=== PATIENT | female | born 1950 | race Caucasian/White ===

== ENCOUNTER → 2016-08-14 | Outpatient (CLI) | payer OTHER, BC ==
[~2016-08-14] MED LIST: ACET-1311 PO; ATOR10TA88 PO; BIOTCAP2 PO; CETI10TA84 PO; ESCI10TA17 PO; HYDC25 PO; LISI1TAB3 PO; MULT-506 PO; PRLSR20 PO; SALI0.657 NAE; SIME180C6 PO; TAMO20TA47 PO; TRIA1SPR4 NAE; TRIA3AER NAE; [UNRECOGNIZED DRUG - CODE] PO
[2016-08-14 15:55] LABS: BASO % 0.4 %; BASO ABS # 0.03 K/uL (0-0.2); COMPLETE YES; EOS % 1.4 %; HEMATOCRIT 40.5 % (37-47); IG% 0.1 %; LYMPH % 23.6 %; MEAN CELL VOLUME 95.3 fL (80-100); MEAN CORPUSCULAR HGB CONC 33.6 g/dl (32-36); MEAN PLATELET VOLUME 10.6 fL (7.4-10.4); MONO % 7.6 %; NEUT % 66.9 %; PLATELET COUNT 220 K/uL (130-400); RED BLOOD COUNT 4.25 M/uL (4.2-5.4); WHITE BLOOD COUNT 7.63 K/uL (4.8-10.8)
== END | disposition home or self-care (01) ==
LOC: C.LAB1850 14:31
PROVIDERS: ATTEND Obstetrics & Gynecology
DX: Z01.818 Encounter for other preprocedural examination (principal)

== ENCOUNTER → 2016-08-18 | Day surgery (SDC) | payer OTHER, BC ==
--- NOTE | 2016-07-01 16:23 | PAT Medication Instructions ---
Service Date Jul 01, 2016. Current Home Medication List Acetaminophen (Tylenol), 650 MG PO Q8 PRN for Pain Atorvastatin (Lipitor), 10 MG PO HS Biotin (Biotin 5000), 1 CAP PO QAM Cetirizine (Zyrtec), 10 MG PO DAILYQAM Escitalopram (Lexapro), 10 MG PO QAM Glucosamine-Chondroitin (Glucosamine/Chondroitin), 1 CAP PO QAM Hydrochlorothiazide (Hctz *), 25 MG PO QAM Lisinopril (Zestril), 30 MG PO HS Multivitamin (Multivitamin), 1 TAB PO QAM Omeprazole (Prilosec), 20 MG PO QAM Saline (Orangevale), 1 SPRY KIRSTEN QAM Simethicone (Phazyme), 180 MG PO BID Tamoxifen (Nolvadex), 20 MG PO QAM Triamcinolone Acet (Nasacort-Aq Nasal Inh), 2 SPRAYS KIRSTEN QPM Triamcinolone Acetonide (Nasal (Nasacort Allergy 24Hr), 1 SPRAY KIRSTEN HS Medication Instructions For Your Scheduled Surgery - Hold the following medications 10 days prior to surgery: Glucosamine-Chondroitin (Glucosamine/Chondroitin), 1 CAP PO QAM Biotin (Biotin 5000), 1 CAP PO QAM - Hold the following medications evening prior to surgery: Lisinopril (Zestril), 30 MG PO HS - Hold the following medications the morning of surgery: Multivitamin (Multivitamin), 1 TAB PO QAM Hydrochlorothiazide (Hctz *), 25 MG PO QAM Cetirizine (Zyrtec), 10 MG PO DAILYQAM Simethicone (Phazyme), 180 MG PO BID Tamoxifen (Nolvadex), 20 MG PO QAM (can take later in day after surgery) - Take the following medications the morning of surgery with a sip of water: Saline (Orangevale), 1 SPRY KIRSTEN QAM Omeprazole (Prilosec), 20 MG PO QAM Escitalopram (Lexapro), 10 MG PO QAM Acetaminophen (Tylenol), 650 MG PO Q8 PRN for Pain (if needed) - Take the following medications as scheduled the night before surgery: Triamcinolone Acet (Nasacort-Aq Nasal Inh), 2 SPRAYS KIRSTEN QPM Atorvastatin (Lipitor), 10 MG PO HS Acetaminophen (Tylenol), 650 MG PO Q8 PRN for Pain Simethicone (Phazyme), 180 MG PO BID If you have any questions please call us at [phone] or [phone] ( [place]) or [phone]
[2016-07-01 16:53] LABS: BASO % 0.4 %; BASO ABS # 0.03 K/uL (0-0.2); COMPLETE YES; EOS % 1.5 %; HEMATOCRIT 37.8 % (37-47); IG% 0.1 %; LYMPH % 28.3 %; LYMPH ABS # 2.12 K/uL (1.2-3.4); MEAN CELL VOLUME 94.5 fL (80-100); MEAN CORPUSCULAR HEMOGLOBIN 32.5 pg (25-34); MEAN CORPUSCULAR HGB CONC 34.4 g/dl (32-36); MEAN PLATELET VOLUME 9.8 fL (7.4-10.4); NEUT % 62.7 %; PLATELET COUNT 194 K/uL (130-400); WHITE BLOOD COUNT 7.48 K/uL (4.8-10.8)
[2016-07-01 17:14] LABS: BLOOD UREA NITROGEN 17 mg/dl (7-18); BUN/CREATININE RATIO 22.3 (10-20); CALCIUM 9.1 mg/dl (8.5-10.1); CARBON DIOXIDE 30 mmol/L (21-32); CHLORIDE 102 mmol/L (98-107); CREATININE 0.76 mg/dl (0.60-1.20); GLUCOSE 93 mg/dl (70-99); POTASSIUM 3.7 mmol/L (3.5-5.1); SODIUM 140 mmol/L (136-145)
[2016-08-08 09:30] VITALS: Ht 165.1 cm; Wt 75.4 kg
[~2016-08-18] VITALS: Ht 165.1 cm; Wt 75.4 kg
[~2016-08-18] MED LIST changes: +DEXAMETHASONE SOD INJ 4 MG/ML VIAL ONE; +FENTANYL CITRATE INJ 50 MCG/1 ML 2 ML VIAL IV PRN; +FENTANYL CITRATE INJ 50 MCG/1 ML 2 ML VIAL ONE; +KETOROLAC TROMETHAMINE 30 MG/ML VIAL IV. PRN; +KETOROLAC TROMETHAMINE 30 MG/ML VIAL ONE; +LACTATED RINGER'S 1000ML 1,000 ML IV PRN; +LACTATED RINGER'S 1000ML 1,000 ML IV SCH; +LIDOCAINE HCL 2% 2 ML VIAL (20MG/ML) ONE; +MIDAZOLAM HCL 1 MG/ML 2ML VIAL ONE; +ONDANSETRON INJ 2 MG/ML 2 ML VIAL IV PRN; +ONDANSETRON INJ 2 MG/ML 2 ML VIAL ONE; +OXYCODONE/ACETAMINOPHEN 5-325 TAB PO PRN; +PROMETHAZINE HCL INJ 25 MG in SODIUM CHLORIDE 0.9% 50ML 50 ML IV PRN; +PROPOFOL IV EMULSION 10 MG/ML 20 ML VIAL IV ONE; +SODIUM CHLORIDE 0.9% 1000ML 1,000 ML IV SCH
--- NOTE | 2016-08-18 09:03 | History & Physical Bridge - SC ---
H&P Re-Evaluation Bridge Note: I have examined the patient, reviewed the History & Physical and in the interval since the performance of the History & Physical I have noted the following changes of clinical significance: No changes noted
--- NOTE | 2016-08-18 09:50 | Discharge Instructions-SurgCtr ---
Discharge Instructions Visit Reason for Visit: Post Menopausal Bleeding Discharge Goals Goal(s): Diagnostic testing Medications Stopped Medications Name(s): TOLD TO STOP BIOTIN AND BIOFLEX 10 DAYS AGO AND LISINOPRIL 2 DAYS AGO Activity Recommendations Activity Limitations: per Instructions/Follow-up section Anesthesia . Post Anesthesia Instructions: If you have had General Anesthesia or IV Sedation: * Do not drive today. * Resume driving when surgeon permits. * Do not make important decisions or sign legal documents today. * Call surgeon for: 1. Temperature elevations greater than 101 degrees F. 2. Uncontrollable pain. 3. Excessive bleeding. 4. Persistent nausea and vomiting. 5. Medication intolerance (nausea, vomiting or rash). * For nausea and vomiting use only clear liquids such as: tea, soda, bouillon until nausea subsides, then gradually increase diet as tolerated. * If you have any concerns or questions, call your surgeon's office. If physician is unavailable and it is an emergency, call 911 or go to the nearest emergency room. . Instructions / Follow-Up Instructions / Follow-Up ACTIVITY RECOMMENDATIONS: * Avoid tampons, douching, hot tubs, pools, and intercourse until bleeding has stopped. * May shower as usual. * No strenuous activity for 24-48 hours. After 24-48 hours, you may do anything you feel like doing (driving and sports are okay). SPECIAL CARE INSTRUCTIONS: Special Diet: * Mild nausea may occur in the immediate post-operative period. * Take clear liquids such as tea, cola or bouillon until all nausea has subsided; you may then resume your normal diet. Special Care: * Light bleeding and vaginal spotting can last from a few days to 3-4 weeks. Call your doctor if bleeding becomes heavier than the heaviest part of your period. * Check your temperature twice a day for one week. If it goes above 100.4 degrees Fahrenheit (38.0 Celsius), notify your doctor. * Call your doctor's office for an appointment for 6 weeks after your surgery. FOLLOW-UP VISIT: Call your doctor's office for an appointment for 6 weeks after your surgery. Diet Recommendations Home Diet: resume previous diet Procedures Procedures Performed: Dilatation And Curettage, Hysteroscopy,Polypectomy Pending Studies Studies pending at discharge: yes (Pathology results ) Medical Emergencies . Who to Call and When: Medical Emergencies: If at any time you feel your situation is an emergency, please call 911 immediately. . Non-Emergent Contact Non-Emergency issues call your: Primary Care Provider, [employer] . . "Provider Documentation" section prepared by Kay Parnell.
--- NOTE | 2016-08-18 09:51 | [facility] Post Operative Brief Note ---
Immediate Operative Summary Operative Date Aug 18, 2016. Pre-Operative Diagnosis Post Menopausal Bleeding, Tamoxifen use, thickened endometrium Post-Operative Diagnosis same + endometrial polyp Procedure(s) Performed Dilatation And Curettage, Hysteroscopy,Polypectomy Surgeon Dr. Celia Parnell Wiener Packer Surgeon(s) Barb Bernard,[facility] Estimated Blood Loss <5cc Findings Uterus sounded to 8cm. Large cavity-filling endometrial polyp. Bilateral ostia noted. Specimens A. Endocervical Curettings B. Endometrial Curettings C. Endometrial Polyp Drains none Anesthesia general Complication(s) None Disposition Recovery Room / PACU
--- NOTE | 2016-08-18 09:55 | Medical Student: [facility] ---
Immediate Operative Summary Operative Date Aug 18, 2016. Pre-Operative Diagnosis Post menopausal bleeding, endometrial thickness, tamoxifen use Post-Operative Diagnosis Post menopausal bleeding, endometrial thickness, tamoxifen use, polyp Procedure(s) Performed Dilation and Curretage, hysteroscopy, polypectomy Surgeon Dr. Parnell Manager Risk Surgeon(s) Alva Bernard MSIII Estimated Blood Loss <5 cc Findings Uterus sounded to 8 cm. Presence of large polyp within uterus. Ostia visualized bilaterally. Specimens Endocervical curettings Polyp Endometrial currettings Drains None Anesthesia General Complication(s) None Disposition Recovery Room / PACU
--- NOTE | 2016-08-18 10:25 | OPERATIVE REPORT ---
DATE OF OPERATION: 08/18/2016 PREOPERATIVE DIAGNOSES: 1. Postmenopausal bleeding. 2. Tamoxifen use. 3. Thickened endometrium. POSTOPERATIVE DIAGNOSIS: Same, plus endometrial polyp. PROCEDURES PERFORMED: Dilation and curettage, hysteroscopy and polypectomy. SURGEON: Dr. Kay Parnell. SAP PPM CONSULTANT: TAMANNA Ross. ESTIMATED BLOOD LOSS: Less than 5 mL. FINDINGS: Uterus sounded to 8 cm, large cavity filling endometrial polyp. Bilateral ostia noted. SPECIMENS: 1. Endocervical curettings 2. Endometrial curettings. 3. Endometrial polyp. DRAINS: None. ANESTHESIA: General. COMPLICATIONS: None. DISPOSITION: Stable and good to recovery room PACU. INDICATIONS FOR PROCEDURE: The patient is a 66-year-old G2, P2 who has a history of bloody vaginal discharge, x2 to 3 months. She has been on Tamoxifen x3 years, with a history of breast cancer diagnosed in 2005 and 2007. DESCRIPTION OF PROCEDURE: The patient was seen in the preoperative holding area where risks, benefits, and alternatives to surgery were reviewed. She elected to proceed with the case. Informed consent had previously been obtained in the office. She was taken to the operating room where general anesthesia was introduced. She was prepared and draped in the usual sterile fashion in the dorsal lithotomy position with feet in Yellofin stirrups. A timeout was called. The patient and procedure were verified. A weighted speculum was placed in the vagina. The cervix was visualized and the anterior lip was grasped with a single tooth tenaculum. Endocervical curettage was performed with a Kevorkian curette. This was passed off to be sent to pathology. The uterus was sounded to 8 cm and the cervix was sequentially dilated with Finn-Lamar dilators. The hysteroscope was inserted and the cavity was viewed with the above noted findings. The decision was made to switch out from the hysteroscope to the MyoSure device to perform a polypectomy. The MyoSure device was then inserted and the polyp was removed with the MyoSure. Pictures were taken both prior to and after removal of the polyp. The device was then removed and a gentle curettage with a sharp curette was undertaken of the uterine cavity. This was retained to be sent to pathology. All instruments were removed from the vagina. Excellent hemostasis was observed. The patient was taken to postoperative recovery in stable and good condition. I attest to the content of the Intraoperative Record and any orders documented therein. Any exceptions are noted below. MTDD
--- NOTE | 2016-08-18 10:34 | Anesthesia Progress Nt - [facility] ---
Anesthesia Post Op Note Date & Time Aug 18, 2016 at 10:34 Vital Signs Pain Intensity: 0 Vital Signs Past 12 Hours Date Time Temp Pulse Resp B/P Pulse Ox O2 Delivery O2 Flow Rate FiO2 08/18/16 10:30 64 15 133/76 100 08/18/16 10:28 66 20 133/76 100 08/18/16 10:28 37.3 08/18/16 10:25 66 16 08/18/16 10:25 66 16 100 08/18/16 10:23 128/79 08/18/16 10:20 70 17 08/18/16 10:20 70 17 100 08/18/16 10:18 133/73 08/18/16 10:15 64 15 08/18/16 10:15 63 15 99 08/18/16 10:13 121/64 08/18/16 10:10 65 10 08/18/16 10:10 65 10 100 08/18/16 10:08 120/72 08/18/16 10:05 65 14 100 08/18/16 10:05 65 14 08/18/16 10:03 120/65 08/18/16 10:00 65 14 100 08/18/16 10:00 65 14 08/18/16 09:58 125/71 08/18/16 09:55 64 12 08/18/16 09:55 64 12 100 08/18/16 09:54 37.0 72 16 133/78 100 Diffusion Mask 8 08/18/16 08:01 36.7 71 16 136/84 96 Room Air Notes Mental Status: alert / awake / arousable, participated in evaluation Pt Amnestic to Procedure: Yes Nausea / Vomiting: adequately controlled Pain: adequately controlled Airway Patency, RR, SpO2: stable & adequate BP & HR: stable & adequate Hydration State: stable & adequate Anesthetic Complications: no major complications apparent Pt doing very well.
[2016-08-18 11:14] VITALS: BP 132/78; PULSE 69; O2SAT 98
== END | disposition home or self-care (01) ==
LOC: X.SURG 07:33
PROVIDERS: ATTEND Obstetrics & Gynecology
DX: N95.0 Postmenopausal bleeding (principal); N84.0 Polyp of corpus uteri; Z85.3 Personal history of malignant neoplasm of breast; Z79.899 Other long term (current) drug therapy; Z90.13 Acquired absence of bilateral breasts and nipples; R73.01 Impaired fasting glucose; K58.9 Irritable bowel syndrome, unspecified; I10 Essential (primary) hypertension; E78.00 Pure hypercholesterolemia, unspecified; G47.33 Obstructive sleep apnea (adult) (pediatric); Z80.49 Family history of malignant neoplasm of other genital organs

== ENCOUNTER → 2017-03-30 | Outpatient (CLI) | payer OTHER, BC ==
[~2017-03-30] MED LIST changes: -DEXAMETHASONE SOD INJ 4 MG/ML VIAL ONE; -FENTANYL CITRATE INJ 50 MCG/1 ML 2 ML VIAL IV PRN; -FENTANYL CITRATE INJ 50 MCG/1 ML 2 ML VIAL ONE; -KETOROLAC TROMETHAMINE 30 MG/ML VIAL IV. PRN; -KETOROLAC TROMETHAMINE 30 MG/ML VIAL ONE; -LACTATED RINGER'S 1000ML 1,000 ML IV PRN; -LACTATED RINGER'S 1000ML 1,000 ML IV SCH; -LIDOCAINE HCL 2% 2 ML VIAL (20MG/ML) ONE; -MIDAZOLAM HCL 1 MG/ML 2ML VIAL ONE; -ONDANSETRON INJ 2 MG/ML 2 ML VIAL IV PRN; -ONDANSETRON INJ 2 MG/ML 2 ML VIAL ONE; -OXYCODONE/ACETAMINOPHEN 5-325 TAB PO PRN; -PROMETHAZINE HCL INJ 25 MG in SODIUM CHLORIDE 0.9% 50ML 50 ML IV PRN; -PROPOFOL IV EMULSION 10 MG/ML 20 ML VIAL IV ONE; -SODIUM CHLORIDE 0.9% 1000ML 1,000 ML IV SCH
[2017-03-30 13:18] LABS: HEMATOCRIT 37.9 % (37-47); MEAN CELL VOLUME 96.4 fL (80-100); MEAN CORPUSCULAR HEMOGLOBIN 32.8 pg (25-34); MEAN PLATELET VOLUME 10.6 fL (7.4-10.4); PLATELET COUNT 125 K/uL (130-400); RED BLOOD COUNT 3.93 M/uL (4.2-5.4); WHITE BLOOD COUNT 5.85 K/uL (4.8-10.8)
--- NOTE | 2017-04-09 07:35 | CODING QUERY MEDICAL NECESSITY ---
CQSUPPORTING DIAGNOSIS NEEDED A supporting diagnosis is required for the test/procedure performed on this patient in order for us to be reimbursed by the patient's insurance. Please provide a supporting diagnosis for the following test/procedure listed below next to the test name along with your signature. *If there is no additional diagnosis for this patient that would support the following test/procedure please document that below next to the test/procedure. Test(s)/Procedure(s) that require a supporting diagnosis: DOS 03/30/17 VITAMIN D TEST BLOOD COUNT Provider Signature: Date: Thank you Raquel Nixon Health Information Management Once completed, please kindly fax back to [phone] For questions please call [phone]
== END | disposition home or self-care (01) ==
LOC: C.LABMFLN 08:19
PROVIDERS: ATTEND Family Medicine
DX: Z13.0 Encounter for screening for diseases of the blood and blood-forming organs and certain disorders involving the immune mechanism (principal); Z13.21 Encounter for screening for nutritional disorder; Z01.812 Encounter for preprocedural laboratory examination

== ENCOUNTER → 2017-09-24 | Outpatient (CLI) | payer OTHER, BC ==
[~2017-09-24] MED LIST changes: +ATOR10TA82 PO; -ATOR10TA88 PO; -TAMO20TA47 PO; +TAMO20TA9 PO
[2017-09-24 17:41] LABS: BASO % 0.4 %; BASO ABS # 0.03 K/uL (0-0.2); EOS % 1.2 %; EOS ABS # 0.08 K/uL (0-0.5); HEMATOCRIT 39.3 % (37-47); HEMOGLOBIN 12.8 g/dL (12.0-16.0); IG# 0.02 K/uL (0.00-0.02); LYMPH % 26.3 %; MEAN CELL VOLUME 98.7 fL (80-100); MEAN CORPUSCULAR HEMOGLOBIN 32.2 pg (25-34); MEAN CORPUSCULAR HGB CONC 32.6 g/dl (32-36); MEAN PLATELET VOLUME 10.2 fL (7.4-10.4); MONO % 7.6 %; MONO ABS # 0.52 K/uL (0.11-0.59); NEUT % 64.2 %; NEUT ABS # 4.39 K/uL (1.4-6.5); PLATELET COUNT 213 K/uL (130-400); RED CELL DISTRIBUTION WIDTH CV 13.9 % (11.5-14.5); WHITE BLOOD COUNT 6.84 K/uL (4.8-10.8)
[2017-09-24 19:31] LABS: ALBUMIN 3.8 gm/dl (3.4-5.0); ALT/SGPT 32 U/L (12-78); AST/SGOT 25 U/L (15-37); BLOOD UREA NITROGEN 20 mg/dl (7-18); CARBON DIOXIDE 28 mmol/L (21-32); CREATININE 0.88 mg/dl (0.60-1.20); GLUCOSE 108 mg/dl (70-99); SODIUM 139 mmol/L (136-145); TOTAL PROTEIN 7.3 gm/dl (6.4-8.2)
[2017-09-24 19:50] LABS: ALKALINE PHOSPHATASE 60 U/L (45-117); CHOLESTEROL 127 mg/dl (0-200); LDL CHOLESTEROL CALCULATED 43 mg/dl
[2017-09-25 06:34] LABS: HEMOGLOBIN A1C 5.7 % (4.5-5.6)
== END | disposition home or self-care (01) ==
LOC: C.LABMFLN 11:26
PROVIDERS: ATTEND Family Medicine
DX: E78.00 Pure hypercholesterolemia, unspecified (principal); R73.01 Impaired fasting glucose; F32.9 Major depressive disorder, single episode, unspecified